=== PATIENT | female | born 1980 | race Caucasian/White ===

== ENCOUNTER 2016-12-12 18:45 | Emergency (ER) ==
--- NOTE | 2016-12-12 20:31 | PROVIDER DOCUMENTATION ---
HPI-EENT General - General Chief Complaint: Earache Stated Complaint: EAR PAIN Time Seen by Provider: 12/12/16 19:52 Source: patient Allergies/Adverse Reactions: Patient Allergies Allergy/AdvReac Type Severity Reaction Status Date / Time No Known Allergies Allergy Verified 12/12/16 19:21 Home Medications: Home Medication List Medication Instructions Recorded Confirmed Last Taken Type Ciproflox/Dexameth Otic Susp 4 drop OTIC BID #1 bottle 12/12/16 Unknown Rx [Ciprodex Otic Suspension] - History of Present Illness-EENT General Nature of Presenting Problem: This pt presents today c complaints of pain and "muffled" hearing for the past few days. She reports that 1 week ago she had a bad sinus infection and had drainage into her bilateral ears. No other issues or complaints at this time. EENT Location: reports: ear (L) Quality of Pain: reports: aching Severity: reports: mild Onset/Duration: reports: other (see hpi) Timing: reports: still present Prearrival Treatment: Initiated no prearrival treatment Similar Symptoms Previously?: No Review of Systems - Adult - REVIEW OF SYSTEMS - ADULT Constitutional: reports: no symptoms reported. denies: chills, fever Eyes: reports: no symptoms reported. denies: discharge, dry eyes Ears, Nose, Mouth & Throat: reports: see HPI, ear pain, hearing loss. denies: ear discharge, loose teeth, mouth/dental pain Cardiovascular: reports: no symptoms reported. denies: chest pain, edema Respiratory: reports: no symptoms reported. denies: chronic cough, cough Gastrointestinal: reports: no symptoms reported. denies: abdominal pain, hematemesis Genitourinary: reports: no symptoms reported. denies: dysuria, discharge Musculoskeletal: reports: no symptoms reported. denies: bone pain, back pain Integumentary: reports: no symptoms reported. denies: hives, hair loss Neurological: reports: no symptoms reported. denies: ataxia, dizziness/vertigo Psychiatric: reports: no symptoms reported. denies: anxiety, anti-depressant use Endocrine: reports: no symptoms reported Hematologic/Lymphatic: reports: no symptoms reported Allergic/Immunologic: reports: no symptoms reported All Other Systems: Reviewed and Negative Past History - Adult - PAST MEDICAL HISTORY-ADULT Review of Records: reports: Old Records Reviewed, Nursing Assessment Review, Medications Reviewed, Social history reviewed & non-contributory. Major Childhood Illnesses: reports: denies history Cardiovascular: reports: denies history Respiratory: reports: denies history Gastrointestinal: reports: GERD Obstetrical/Gynecological: reports: denies history Genitourinary: reports: denies history Musculoskeletal: reports: denies history Neurological: reports: other (anxiety) Psychiatric: reports: anxiety, depression Endocrine/Immune: reports: denies history Other Conditions: reports: denies history - PRIOR SURGERIES/PROCEDURES Surgical/Procedure History: reports: - IMMUNIZATION STATUS Childhood Immunizations: See Nurse Assessment Flu Vaccine: See Nurse Assessment - FAMILY HISTORY Family History: reviewed, not pertinent Physical Exam- EENT - Physical Exam EENT Initial Vital Signs Reviewed: Yes General Appearance: appears well, alert, no apparent distress Eye Exam: bilateral eye: normal inspection, PERRL, EOMI Ear Exam: left ear: erythema, tenderness, other (serous fluid bubbles in ear), bilateral ear: auricle normal, canal normal Nasal Exam: normal inspection Throat Exam: normal mouth inspection, pharynx normal Neck: non-tender, full range of motion, supple Respiratory: chest non-tender, lungs clear, normal breath sounds Cardiovascular: normal peripheral pulses, regular rate, rhythm Abdominal Exam: normal bowel sounds, non tender, soft Back Exam: normal inspection, no CVA tenderness, no vertebral tenderness Extremity: normal range of motion, non-tender, normal gait, normal inspection Integumentary: normal color, normal turgor, warm/dry Neurologic: grossly normal, no motor/sensory deficits Psych/Mental Status: normal mood/affect, normal thought content, normal thought process, oriented x 3 Progress - PLAN OF CARE/RESULTS Progress/Plan/Lab Results: Vital Signs Temp Pulse Resp BP Pulse Ox 12/12/16 19:21 98.7 F 79 18 116/71 100 No Known Allergies Allergy (Verified 12/12/16 19:21) No Home Medications 12/12/16 Departure - Departure Time of Disposition Order: 20:30 DIAGNOSIS: Serous otitis media Qualifiers: Laterality: left Chronicity: acute Recurrence: not specified as recurrent Qualified Code(s): H65.02 - Acute serous otitis media, left ear Disposition: HOME 01 Certified Medical Emergency: Urgent Condition: Good Additional Instructions: Take medication as prescribed. Follow up with an ENT. ED Follow Up Instructions: You have been treated by a care provider in the Emergency Department. These instructions are being provided to you so you can have an understanding of how to care for yourself upon discharge. Upon discharge from the Emergency Department, you are responsible for making arrangements for follow-up care by a physician of your choice. Take all prescribed medications as directed. Return to the Emergency Department immediately for any new or worsening symptoms. You may call the Physician Referral phone number at [phone] to obtain a list of Physicians who are taking new patients. Prescriptions: Ciproflox/Dexameth Otic Susp [Ciprodex Otic Suspension] 4 drop OTIC BID #1 bottle Referrals: None,PCP [Primary Care Provider] - Navjot Angulo MD [STAFF PHYSICIAN] - Attestation - Physician/ JOSE Attestation Patient care was provided by Advanced Practice Provider:: Yes Advanced Practice Provider:: Viktor Lerner Advanced Practice Provider documentation review:: The Mid-level provider documentation, treatment plan and medical decision making was reviewed by the physician who agrees with all treatment and medical decision making by the MLP.
[2016-12-12 20:37] VITALS: BP 109/75
[2016-12-12] MEDS ORDERED: ULTRAM PO ONE (20:40)
== END 2016-12-12 20:46 | disposition home or self-care (01) ==
LOC: P.ED 18:45
DX: H65.02 Acute serous otitis media, left ear (principal); H92.02 Otalgia, left ear; H91.92 Unspecified hearing loss, left ear
CPT/HCPCS: 99282

== ENCOUNTER 2016-12-25 22:37 | Emergency (ER) ==
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
[2016-12-26] MEDS ORDERED: MORPHINE IM ONE (00:12)
[2016-12-26] MEDS ORDERED: ZOFRAN ODT PO ONE (00:13)
[2016-12-26] MEDS ORDERED: MORPHINE ONE (00:14)
[2016-12-26] MEDS ORDERED: ZOFRAN ODT ONE (00:14)
[2016-12-26 01:04] VITALS: BP 118/79
--- NOTE | 2016-12-26 06:35 | Diag Imaging Result Document ---
PROCEDURE NAME: HEAD/C-SPINE W/O CONTRAST - 12/25/2016 CT BRAIN AND CERVICAL SPINE WITHOUT CONTRAST: TECHNIQUE: Dose-reduction protocol. BRAIN WITHOUT: FINDINGS: No parenchymal hemorrhage. No epidural or subdural hematoma. No subarachnoid hemorrhage. There is a small posterior scalp hematoma. No skull fracture. No hydrocephalus. No mass identified on this noncontrasted exam. There is near complete opacification of the right ethmoid sinus and ethmoid sinus. IMPRESSION: 1. Small posterior scalp hematoma, but no intracranial injury. 2. Right maxillary and ethmoid sinusitis. CT CERVICAL SPINE WITHOUT CONTRAST: FINDINGS: There is good alignment to the cervical spine. No precervical soft tissue swelling. No subluxation. Degenerative changes are found in the mid and lower cervical spine. No fracture. IMPRESSION: 1. No acute bony injury. 2. [id number] degenerative changes. A preliminary report was given at 12:41 a.m. MTDD
== END 2016-12-26 01:18 | disposition home or self-care (01) ==
LOC: P.ED 22:37
DX: S00.03XA Contusion of scalp, initial encounter (principal); S01.01XA Laceration without foreign body of scalp, initial encounter; R51 Headache; Z87.891 Personal history of nicotine dependence; Y04.2XXA Assault by strike against or bumped into by another person, initial encounter; W22.8XXA Striking against or struck by other objects, initial encounter
CPT/HCPCS: 70450; 72125; 96372; J2270

== ENCOUNTER 2018-12-27 18:48 | Inpatient (IN) ==
[2018-12-27] MEDS ORDERED: ZOFRAN IV ONE (19:00)
[2018-12-27] MEDS ORDERED: DILAUDID IV ONE (19:00)
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
--- NOTE | 2018-12-27 19:25 | Diag Imaging Result Doc PS360 ---
EXAM: ANKLE COMPLETE RIGHT 12/27/2018 HISTORY: injury TECHNIQUE: Right ankle two views COMMENT: There is a spiral fracture in the distal tibia. This may involve a portion of the articular surface. The fibula appears to be intact. The ankle mortise is aligned. IMPRESSION: Fracture distal tibia. Electronically signed by Ronnell Enriquez 12/27/2018 7:23 PM
[2018-12-27] MEDS ORDERED: PERCOCET-10 PO PRN (19:37)
[2018-12-27] MEDS ORDERED: NS 1,000 ML IV ONE (19:37)
--- NOTE | 2018-12-27 19:46 | Diag Imaging Result Doc PS360 ---
EXAM: CHEST-PORTABLE 12/27/2018 HISTORY: admit TECHNIQUE: AP portable upright at 1938 COMMENT: There is no evidence of acute cardiac or pulmonary disease. Compared to 10/13/2018 there has been no significant change. IMPRESSION: No acute disease. Electronically signed by Ronnell Enriquez 12/27/2018 7:44 PM
[2018-12-27 20:27] LABS: URINE SOURCE CLEAN CATCH
[2018-12-27 20:28] LABS: UR EPITHELIAL CELLS <10 /HPF (<10); URINE BACTERIA NEGATIVE /HPF; URINE RBC <10 /HPF (<10); URINE WBC <10 /HPF (<10)
[2018-12-27 20:29] LABS: BILIRUBIN URINE NEGATIVE (NEGATIVE); BLOOD URINE NEGATIVE (NEGATIVE); COLOR YELLOW; GLUCOSE URINE NEGATIVE (NEGATIVE); KETONE URINE NEGATIVE (NEGATIVE); LEUKOCYTES URINE NEGATIVE (NEGATIVE); NITRITE URINE NEGATIVE (NEGATIVE); PROTEIN URINE NEGATIVE (NEGATIVE); SP GRAVITY URINE 1.005; TURBIDITY URINE CLEAR (CLEAR); UROBILINOGEN URINE NORMAL (NORMAL)
[2018-12-27 20:36] LABS: BASO# 0.04 X1000 (0.0-0.2); EOS# 0.03 X1000 (0.0-0.7); EOS% 0.8 % (0.0-10.0); HEMATOCRIT 38.8 % (37.0-47.0); HEMOGLOBIN 13.3 g/dL (12.0-16.0); LYMPH% 33.9 % (20.5-51.1); MCH 39.3 PG (27-31); MCHC 34.3 g/dL (33-37); MCV 114.8 FL (81-99); MONO# 0.24 X1000 (0.11-0.59); MONO% 6.3 % (1.7-9.3); MPV 9.9 FL (7.4-10.4); NEUT# 2.23 X1000 (1.4-6.5); PLT 115 X1000 (130-400); RBC 3.38 XMIL (4.2-5.4); RDW 12.8 % (11.5-14.5); WBC 3.84 X1000 (4.8-10.8)
[2018-12-27 20:38] LABS: AGAP 14; ALB/GLOB RATIO 1.1; ALBUMIN 3.9 g/dL (3.5-5.0); ALKALINE PHOSPHATASE 201 U/L (32-104); BUN 6 mg/dL (8-22); CHLORIDE 102 mmol/L (98-107); COSMO 280; CREATININE 0.5 mg/dL (0.5-0.9); ESTIMATED GFR > 60; GLUCOSE 92 mg/dL (70-104); GOT 152 U/L (10-30); GPT 46 U/L (10-36); SODIUM 142 mmol/L (136-145); TCO2 26 mmol/L (25-35); TOTAL BILIRUBIN 1.03 mg/dL (0.20-1.00); TOTAL PROTEIN 7.5 g/dL (6.3-8.3)
[2018-12-27] MEDS: DILAUDID IV PRN (22:10)
[2018-12-27] MEDS: ZOFRAN IV PRN (22:18)
[2018-12-28] MEDS: DILAUDID IV PRN ×4 (02:17→19:58)
[2018-12-28] MEDS: ZOFRAN IV PRN ×3 (02:17→19:59)
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
[2018-12-28] MEDS ORDERED: ROBINUL ONE (08:46)
[2018-12-28] MEDS ORDERED: XYLOCAINE-MPF 2% ONE (08:46)
[2018-12-28] MEDS ORDERED: QUELICIN (DOSE) ONE (08:48)
[2018-12-28] MEDS ORDERED: NORCURON ONE (08:48)
[2018-12-28] MEDS ORDERED: STERILE WATER INJ. ONE (08:48)
[2018-12-28] MEDS ORDERED: DIPRIVAN 1% ONE (08:49)
[2018-12-28] MEDS ORDERED: FENTANYL ONE (08:49)
[2018-12-28] MEDS ORDERED: VERSED ONE (09:00)
[2018-12-28] MEDS ORDERED: MARCAINE 0.25% PF ONE (11:00)
[2018-12-28] MEDS ORDERED: KEFZOL 2 GM/D5W 2 GM/50 ML IVPB ONE (11:00)
[2018-12-28] MEDS ORDERED: XYLOCAINE 1% ONE (11:00)
[2018-12-28] MEDS ORDERED: DILAUDID ONE (11:33)
[2018-12-28] MEDS ORDERED: SODIUM CHLORIDE 0.9% 10 ML ONE (11:34)
[2018-12-28] MEDS ORDERED: NEOSTIGMINE ONE (12:01)
[2018-12-28] MEDS ORDERED: ZOFRAN ONE (12:02)
[2018-12-28] MEDS ORDERED: MORPHINE IV PRN (13:23)
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
[2018-12-28] MEDS: OXY IR PO PRN ×2 (17:45→22:51)
[2018-12-28] MEDS: NS 1,000 ML IV SCH (17:46)
[2018-12-28] MEDS: KEFZOL 1 GM/D5W 1 GM/50 ML IVPB IV SCH ×2 (19:58→22:07)
[2018-12-28] MEDS: PERIDEX MT SCH (19:59)
[2018-12-29] MEDS: DILAUDID IV PRN ×3 (00:17→08:06)
[2018-12-29] MEDS: ZOFRAN IV PRN ×2 (00:17→04:03)
[2018-12-29 00:56] LABS: BILIRUBIN URINE NEGATIVE (NEGATIVE); BLOOD URINE SMALL (NEGATIVE); COLOR ORANGE; GLUCOSE URINE NEGATIVE (NEGATIVE); KETONE URINE 20 mg/dL (NEGATIVE); LEUKOCYTES URINE NEGATIVE (NEGATIVE); NITRITE URINE NEGATIVE (NEGATIVE); PH URINE 7.5; PROTEIN URINE NEGATIVE (NEGATIVE); TURBIDITY URINE CLEAR (CLEAR); UR EPITHELIAL CELLS <10 /HPF (<10); URINE BACTERIA NEGATIVE /HPF; URINE RBC 20-40 /HPF (<10); URINE SOURCE CLEAN CATCH; URINE WBC <10 /HPF (<10); UROBILINOGEN URINE NORMAL (NORMAL)
[2018-12-29 02:33] LABS: AGAP 12; BUN 4 mg/dL (8-22); CALCIUM 7.6 mg/dL (8.8-10.2); CHLORIDE 93 mmol/L (98-107); COSMO 260; CREATININE 0.5 mg/dL (0.5-0.9); ESTIMATED GFR > 60; GLUCOSE 102 mg/dL (70-104); POTASSIUM 3.4 mmol/L (3.5-5.1); SODIUM 131 mmol/L (136-145); TCO2 26 mmol/L (25-35)
[2018-12-29] MEDS: LOVENOX SUBQ SCH ×2 (04:03→05:12)
[2018-12-29] MEDS: KEFZOL 1 GM/D5W 1 GM/50 ML IVPB IV SCH ×2 (04:04→05:11)
[2018-12-29] MEDS: NS 1,000 ML IV SCH (04:04)
--- NOTE | 2018-12-29 07:34 | PROGRESS NOTE ---
DATE: 12/29/2018 SUBJECTIVE: Ms. Santo is lying in bed this morning. She has complained of pain in the leg. OBJECTIVE: On right lower extremity exam, she has good sensation to light touch to the toes. She has good dorsiflexion and plantar flexion of the toes. Good capillary refill to the toes. Splint is clean, dry, and intact. ASSESSMENT: Status post right tibial nailing and open reduction and internal fixation ankle. PLAN: Ms. Santo will remain nonweightbearing to the right lower extremity. We will get everything set for discharge today. She will go home on Percocet, aspirin, and Bactrim for a UTI. She will see me in a week in clinic. cc: Finesse Webb MD
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
[2018-12-29 07:57] VITALS: BP 125/70
[2018-12-29] MEDS: PERIDEX MT SCH (08:06)
[2018-12-29] MEDS: OXY IR PO PRN (10:46)
== END 2018-12-29 11:39 | disposition home or self-care (01) | DRG 494 ==
LOC: ED 18:48 → 4N 21:33
PROVIDERS: ADMIT Orthopaedic Surgery; ATTEND Orthopaedic Surgery
CPT/HCPCS: 51702; 71010; 71045; 73610; 73701; 76000; 80048; 80053; 80307; 80320; 81001; 81025; 82055; 85025; 93005; 94761; 94799; 96374; 96375; 99285; A9270; G0480; G6040; J0330; J0690; J1170; J1650; J2250; J2405; J3010; J7030; Q9967; S0020